=== PATIENT | male | born 2005 | race Caucasian/White ===

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

== ENCOUNTER 2025-09-05 18:29 | Emergency (ER) | payer MEDICAID ==
[~2025-09-05] VITALS: Ht 177.8 cm; Wt 49.9 kg
[~2025-09-05 18:29] MED LIST changes: +OMEPRAZOLE40 MG PO
[2025-09-05] MEDS ORDERED: diphenhydrAMINE hydrochloride 50 MG/ML VIAL IV ONE (19:00)
[2025-09-05] MEDS ORDERED: FAMOTIDINE 20 MG in SYRINGE INFUSION 8 ML IV ONE (19:00)
[2025-09-05] MEDS ORDERED: FAMOTIDINE 20 MG/2 ML VIAL ONE (19:42)
== END 2025-09-05 20:33 | disposition home or self-care (01) ==
LOC: ED 18:29
DX: Z79.899 Other long term (current) drug therapy (principal); Z98.890 Other specified postprocedural states